=== PATIENT | female | born 1990 | race American Indian/Alaskan Native ===

== ENCOUNTER 2018-09-21 23:45 | Inpatient (IN) | payer BC ==
[2018-09-22] MEDS ORDERED: Nalbuphine 20 MG/ML 1 ML Syringe IVPUSH PRN (00:50)
[2018-09-22] MEDS ORDERED: Sodium Chloride 0.9% 10 ML Syringe FLUSH PRN (00:50)
[2018-09-22] MEDS ORDERED: Oxytocin/Lactated Ringers 10 UNIT/1,000 ML BAG IV SCH ×2 (01:00)
[2018-09-22] MEDS: Lactated Ringers 1,000 ML IV SCH ×4 (01:16→17:30)
[2018-09-22] MEDS ORDERED: Ampicillin 2 GM in Sodium Chloride 0.9% 100 ML IV ONE (01:30)
[2018-09-22] MEDS: Ampicillin 1 GM in Sodium Chloride 0.9% 100 ML IV SCH ×5 (04:58→21:48)
--- NOTE | 2018-09-22 06:53 | PCM.LDHP ---
L&D History of Present Illness - General Date of Service: 09/22/18 Admit Problem/Dx: Patient Status Order with Admit Dx/Problem 09/22/18 00:35 Patient Status [ADT] Routine Admission Diagnosis/Problem Admission Diagnosis/Problem Source of Information: Patient History Limitations: Reports: No Limitations - History of Present Illness Introduction:: Patient is a 27 y/o who presented in the early AM hours with SROM. Admitted by Dr. Childers overnight and just transferred care to [place]. Has been sarai mildly since admit. Continues to leak clear fluid. Doing well otherwise - Related Data Allergies/Adverse Reactions: Allergies Allergy/AdvReac Type Severity Reaction Status Date / Time No Known Allergies Allergy Verified 02/25/14 15:34 Home Medications: Home Meds Pnv with Ca,No.72/Iron/Fa [Pnv Plus Multivit Tab] 1 each PO DAILY 03/08 [History] Past Medical History - Past Health History Medical/Surgical History: Denies Medical/Surgical History Endocrine/Metabolic History: Reports: Diabetes, Gestational Other Endocrine/Metabolic History: with prior , diet controlled - Infectious Disease History Infectious Disease History: Reports: Chicken Pox Social & Family History - Family History Family Medical History: Noncontributory - Tobacco Use Smoking Status *Q: Former Smoker Years of Tobacco use: 10 Packs/Tins Daily: 5 Used Tobacco, but Quit: Yes Month/Year Tobacco Last Used: 07/26/2018 - Alcohol Use Alcohol Use History: No - Recreational Drug Use Recreational Drug Use: No H&P Review of Systems - Review of Systems: Review Of Systems: See Below General: Reports: No Symptoms Pulmonary: Reports: No Symptoms Cardiovascular: Reports: No Symptoms Gastrointestinal: Reports: No Symptoms Genitourinary: Reports: No Symptoms Musculoskeletal: Reports: No Symptoms Neurological: Reports: No Symptoms L&D Exam - Exam Exam: See Below - Vital Signs Vital Signs: Last Vital Signs Temp 36.7 C 09/22/18 00:35 Pulse 84 09/22/18 00:35 Resp 16 09/22/18 00:35 BP 121/67 09/22/18 00:35 Pulse Ox 100 09/22/18 00:35 Weight: 80.286 kg - OB Specific Contraction Intensity: Mild to Moderate Movement: Active Heart Tones: Present Heart Tones per Min: 135 Heart Rate (FHR) Variability: Moderate (6-25 bmp) Presentation: Vertex (per nursing exam) - Reeves Score Reeves Score Cervix Position: Posterior Reeves Score Consistency: Soft Reeves Score Effacement: 51-70% Reeves Score Dilation: 3-4 cm (Per nursing) Reeves Score Infant's Station: -2 Reeves Score Total: 7 - Exam General: Alert, Oriented, Cooperative Lungs: Clear to Auscultation, Normal Respiratory Effort, Crackles Cardiovascular: Regular Rhythm GI/Abdominal Exam: Soft, Non-Tender Genitourinary: Normal external exam Extremities: Normal Inspection Skin: Warm, Dry, Intact - Patient Data Lab Results Last 24 hrs: Laboratory Results - last 24 hr 09/22/18 09/22/18 Range/Units 00:30 01:03 WBC 10.78 H (3.98-10.04) K/mm3 RBC 3.92 L (3.98-5.22) M/mm3 Hgb 10.4 L (11.2-15.7) gm/L Hct 32.5 L (34.1-44.9) % MCV 82.9 (79.4-94.8) fl MCH 26.5 (25.6-32.2) pg MCHC 32.0 L (32.2-35.5) g/dl RDW Std Deviation 43.1 (36.4-46.3) fL Plt Count 226 (182-369) K/mm3 MPV 10.9 (9.4-12.3) fl Neut % (Auto) 71.7 H (34.0-71.1) % Lymph % (Auto) 18.7 L (19.3-51.7) % [place] % (Auto) 7.7 (4.7-12.5) % Eos % (Auto) 1.1 (0.7-5.8) Baso % (Auto) 0.2 (0.1-1.2) % Neut # (Auto) 7.73 H (1.56-6.13) K/mm3 Lymph # (Auto) 2.02 (1.18-3.74) K/mm3 [place] # (Auto) 0.83 H (0.24-0.36) K/mm3 Eos # (Auto) 0.12 (0.04-0.36) K/mm3 Baso # (Auto) 0.02 (0.01-0.08) K/mm3 Membrane Rupture Positive H Result Diagrams: 09/22/18 01:03 - Problem List (1) 39 weeks gestation of SNOMED Code(s): 09917754 ICD Code: Z3A.39 - 39 WEEKS GESTATION OF Status: Acute Current Visit: Yes (2) SROM (spontaneous rupture of membranes) SNOMED Code(s): 070398539 ICD Code: EPB1855 - Status: Acute Current Visit: Yes (3) GBS (group B Streptococcus carrier), +RV culture, currently SNOMED Code(s): 7129705854870, 066118828, 8180340629298 ICD Code: O99.820 - STREPTOCOCCUS B CARRIER STATE COMPLICATING Status: Acute Current Visit: Yes Problem List Initiated/Reviewed/Updated: Yes Orders Last 24hrs: Active Orders 24 hr Category Date Time Status Patient Status [ADT] Routine ADT 09/22/18 00:35 Active Activity as Tolerated [RC] PFP Care 09/22/18 00:50 Active Communication Order [RC] ASDIRECTED Care 09/22/18 00:50 Active Notify Provider [RC] PFP Care 09/22/18 00:50 Active Notify Provider [RC] PRN Care 09/22/18 00:50 Active Peripheral IV Care [RC] . DIRECTED Care 09/22/18 00:50 Active Vital Signs [RC] PER UNIT ROUTINE Care 09/22/18 00:35 Active Regular Diet [DIET] Diet 09/22/18 Breakfast Active RAPID PLASMA REAGIN,RPR [CHEM] Routine Lab 09/22/18 01:03 Received Ampicillin 1 gm Med 09/22/18 05:30 Active Sodium Chloride 0.9% [Normal Saline] 100 ml IV Q4H Lactated Ringers [Ringers, Lactated] 1,000 ml Med 09/22/18 01:00 Active IV ASDIRECTED Nalbuphine [Nubain] Med 09/22/18 00:50 Active 10 mg IVPUSH Q2H PRN Oxytocin/Lactated Ringers [Pitocin in LR 10 Units/1,000 Med 09/22/18 01:00 Active ML] 10 unit in 1,000 ml IV .CONTINUOUS Oxytocin/Lactated Ringers [Pitocin in LR 10 Units/1,000 Med 09/22/18 01:00 Active ML] 10 unit in 1,000 ml IV TITRATE Sodium Chloride 0.9% [Saline Flush] Med 09/22/18 00:50 Active 10 ml FLUSH ASDIRECTED PRN Electronic Heart Tones Ext w TOCO [WOMSER] Oth 09/22/18 00:50 Ordered Routine Electronic Heart Tones Internal [WOMSER] Per Unit Oth 09/22/18 00:50 Ordered Routine Peripheral IV Insertion Adult [OM.PC] Routine Oth 09/22/18 00:50 Ordered Resuscitation Status Routine Resus Stat 09/22/18 00:35 Ordered Medication Orders Ampicillin Sodium 1 gm/ Sodium (Chloride) 100 mls @ 200 mls/hr IV Q4H JORGE L Last Admin: 09/22/18 04:58 Dose: 200 mls/hr Lactated Ringer's (Ringers, Lactated) 1,000 mls @ 100 mls/hr IV ASDIRECTED JORGE L Last Admin: 09/22/18 01:16 Dose: 100 mls/hr Oxytocin/Lactated Ringer's (Pitocin In Lr 10 Units/1,000 Ml) 10 unit in 1,000 mls @ 12 mls/hr IV TITRATE JORGE L; Protocol Oxytocin/Lactated Ringer's (Pitocin In Lr 10 Units/1,000 Ml) 10 unit in 1,000 mls @ 100 mls/hr IV .CONTINUOUS JORGE L Nalbuphine HCl (Nubain) 10 mg IVPUSH Q2H PRN PRN Reason: pain Sodium Chloride (Saline Flush) 10 ml FLUSH ASDIRECTED PRN PRN Reason: Keep Vein Open Assessment/Plan Comment:: 27 y/o who presented with PROM * Now s/p 2 doses of antibiotics * Did discuss augmentation with pitocin with patient. She is uncertain if she wants to do this yet or not. ] * Pain management per patient preference * Anticipate
[2018-09-22] MEDS ORDERED: ePHEDrine 50 MG/ML SDV IVPUSH PRN (07:41)
[2018-09-22] MEDS ORDERED: fentaNYL 100 MCG/2 ML SDV EPIDUR PRN (07:41)
[2018-09-22] MEDS ORDERED: diphenhydrAMINE 50 MG/ML SDV IVPUSH PRN (07:41)
--- NOTE | 2018-09-22 07:44 | PCM.PREANE ---
Preanesthetic Assessment - Procedure Proposed Procedure: dominga - Anesthesia/Transfusion/Family Hx Anesthesia History: Prior Anesthesia Without Reaction Family History of Anesthesia Reaction: No Transfusion History: No Prior Transfusion(s) - Review of Systems General: No Symptoms Pulmonary: No Symptoms Cardiovascular: No Symptoms Gastrointestinal: No Symptoms Neurological: No Symptoms Other: Reports: None - Physical Assessment O2 Sat by Pulse Oximetry: 100 Respiratory Rate: 16 Vital Signs: Last Vital Signs Temp 98.1 F 09/22/18 00:35 Pulse 84 09/22/18 00:35 Resp 16 09/22/18 00:35 BP 121/67 09/22/18 00:35 Pulse Ox 100 09/22/18 00:35 Height: 5 ft 3 in Weight: 80.286 kg ASA Class: 2 Mental Status: Alert & Oriented x3 Airway Class: Mallampati = 1 Dentition: Reports: Normal Dentition Thyro-Mental Finger Breadths: 3 Mouth Opening Finger Breadths: 3 ROM/Head Extension: Full Lungs: Clear to Auscultation, Normal Respiratory Effort Cardiovascular: Regular Rate, Regular Rhythm - Lab Values: Laboratory Last Values WBC 10.78 K/mm3 (3.98-10.04) H 09/22/18 01:03 RBC 3.92 M/mm3 (3.98-5.22) L 09/22/18 01:03 Hgb 10.4 gm/L (11.2-15.7) L 09/22/18 01:03 Hct 32.5 % (34.1-44.9) L 09/22/18 01:03 MCV 82.9 fl (79.4-94.8) 09/22/18 01:03 MCH 26.5 pg (25.6-32.2) 09/22/18 01:03 MCHC 32.0 g/dl (32.2-35.5) L 09/22/18 01:03 RDW Std Deviation 43.1 fL (36.4-46.3) 09/22/18 01:03 Plt Count 226 K/mm3 (182-369) 09/22/18 01:03 MPV 10.9 fl (9.4-12.3) 09/22/18 01:03 Neut % (Auto) 71.7 % (34.0-71.1) H 09/22/18 01:03 Lymph % (Auto) 18.7 % (19.3-51.7) L 09/22/18 01:03 [place] % (Auto) 7.7 % (4.7-12.5) 09/22/18 01:03 Eos % (Auto) 1.1 (0.7-5.8) 09/22/18 01:03 Baso % (Auto) 0.2 % (0.1-1.2) 09/22/18 01:03 Neut # (Auto) 7.73 K/mm3 (1.56-6.13) H 09/22/18 01:03 Lymph # (Auto) 2.02 K/mm3 (1.18-3.74) 09/22/18 01:03 [place] # (Auto) 0.83 K/mm3 (0.24-0.36) H 09/22/18 01:03 Eos # (Auto) 0.12 K/mm3 (0.04-0.36) 09/22/18 01:03 Baso # (Auto) 0.02 K/mm3 (0.01-0.08) 09/22/18 01:03 Membrane Rupture Positive H 09/22/18 00:30 - Allergies Allergies/Adverse Reactions: Allergies Allergy/AdvReac Type Severity Reaction Status Date / Time No Known Allergies Allergy Verified 02/25/14 15:34 - Blood Blood Available: No - Acknowledgements Anesthesia Type Planned: Epidural Pt an Appropriate Candidate for the Planned Anesthesia: Yes Alternatives and Risks of Anesthesia Discussed w Pt/Guardian: Yes Pt/Guardian Understands and Agrees with Anesthesia Plan: Yes PreAnesthesia Questionnaire - Past Health History Medical/Surgical History: Denies Medical/Surgical History Cardiovascular History: Reports: None Respiratory History: Reports: None Gastrointestinal History: Reports: GERD (with preg) : 3 (39 3 weeks) Para: 2 Endocrine/Metabolic History: Reports: Diabetes, Gestational Other Endocrine/Metabolic History: with prior , diet controlled - Infectious Disease History Infectious Disease History: Reports: Chicken Pox - SUBSTANCE USE Smoking Status *Q: Former Smoker (quit jul 2018) Tobacco Use Within Last Twelve Months: Cigarettes Second Hand Smoke Exposure: No Days Per Week of Alcohol Use: 0 Recreational Drug Use History: No - HOME MEDS Home Medications: Home Meds Pnv with Ca,No.72/Iron/Fa [Pnv Plus Multivit Tab] 1 each PO DAILY 03/08 [History] - CURRENT (IN HOUSE) MEDS Current Meds: Current Medications Ampicillin Sodium 1 gm/ Sodium (Chloride) 100 mls @ 200 mls/hr IV Q4H JORGE L Last Admin: 09/22/18 04:58 Dose: 200 mls/hr Lactated Ringer's (Ringers, Lactated) 1,000 mls @ 100 mls/hr IV ASDIRECTED JORGE L Last Admin: 09/22/18 07:37 Dose: 100 mls/hr Oxytocin/Lactated Ringer's (Pitocin In Lr 10 Units/1,000 Ml) 10 unit in 1,000 mls @ 12 mls/hr IV TITRATE JORGE L; Protocol Oxytocin/Lactated Ringer's (Pitocin In Lr 10 Units/1,000 Ml) 10 unit in 1,000 mls @ 100 mls/hr IV .CONTINUOUS JORGE L Nalbuphine HCl (Nubain) 10 mg IVPUSH Q2H PRN PRN Reason: pain Sodium Chloride (Saline Flush) 10 ml FLUSH ASDIRECTED PRN PRN Reason: Keep Vein Open Discontinued Medications Ampicillin Sodium 2 gm/ Sodium (Chloride) 100 mls @ 200 mls/hr IV ONETIME ONE Stop: 09/22/18 01:59 Last Admin: 09/22/18 01:16 Dose: 200 mls/hr
[2018-09-22] MEDS: fentaNYL/Bupivacaine-NS 2 MCG/ML-0.125%/PF 100 ML Bag EP SCH ×2 (07:48→19:31)
--- NOTE | 2018-09-22 12:01 | PCM.PNLD ---
Labor Progress Note - VS & Meds Vital Signs: Last Vital Signs Temp 36.7 C 09/22/18 00:35 Pulse 84 09/22/18 00:35 Resp 16 09/22/18 07:44 BP 121/67 09/22/18 00:35 Pulse Ox 100 09/22/18 07:44 Active Medications: Current Medications Diphenhydramine HCl (Benadryl) 25 mg IVPUSH Q6H PRN PRN Reason: pruritis Ephedrine Sulfate (Ephedrine Sulfate) 5 mg IVPUSH ASDIRECTED PRN PRN Reason: Hypotension Fentanyl (Sublimaze) 100 mcg EPIDUR Q3H PRN PRN Reason: Pain Last Admin: 09/22/18 07:49 Dose: 100 mcg Fentanyl/Bupivacaine HCl (Xjgxctcb-Kleew-Ve 2 Mcg/Ml-0.125%) 100 ml EP ASDIRECTED JORGE L Last Admin: 09/22/18 07:48 Dose: 100 ml Ampicillin Sodium 1 gm/ Sodium (Chloride) 100 mls @ 200 mls/hr IV Q4H JORGE L Last Admin: 09/22/18 09:31 Dose: 200 mls/hr Lactated Ringer's (Ringers, Lactated) 1,000 mls @ 100 mls/hr IV ASDIRECTED JORGE L Last Admin: 09/22/18 08:24 Dose: 100 mls/hr Oxytocin/Lactated Ringer's (Pitocin In Lr 10 Units/1,000 Ml) 10 unit in 1,000 mls @ 12 mls/hr IV TITRATE JORGE L; Protocol Last Titration: 09/22/18 10:15 Dose: 8 munits/min, 48 mls/hr Oxytocin/Lactated Ringer's (Pitocin In Lr 10 Units/1,000 Ml) 10 unit in 1,000 mls @ 100 mls/hr IV .CONTINUOUS JORGE L Nalbuphine HCl (Nubain) 10 mg IVPUSH Q2H PRN PRN Reason: pain Sodium Chloride (Saline Flush) 10 ml FLUSH ASDIRECTED PRN PRN Reason: Keep Vein Open Discontinued Medications Ampicillin Sodium 2 gm/ Sodium (Chloride) 100 mls @ 200 mls/hr IV ONETIME ONE Stop: 09/22/18 01:59 Last Admin: 09/22/18 01:16 Dose: 200 mls/hr - Uterine Contractions Uterine Monitoring Mode: External [place] Contraction Intensity: Moderate - Monitoring Monitor Mode: External Ultrasound Heart Rate (FHR) Baseline: 140 Heart Rate (FHR) Variability: Moderate (6-25 bmp) Accelerations: Present, 15x15 Decelerations: None Strip Review: Category I - Vaginal Exam Dilation (cm): 4 Effacement (Percent): 75 Station: -2 Cervical Position: Midposition - Labor Progress (Free Text) Labor Progress: Doing well. on 10 of pitocin. Comfortable with epidural. Continue to increase per protocol
--- NOTE | 2018-09-22 17:01 | PCM.PNLD ---
Labor Progress Note - VS & Meds Vital Signs: Last Vital Signs Temp 36.7 C 09/22/18 00:35 Pulse 84 09/22/18 00:35 Resp 16 09/22/18 07:44 BP 121/67 09/22/18 00:35 Pulse Ox 100 09/22/18 07:44 Active Medications: Current Medications Diphenhydramine HCl (Benadryl) 25 mg IVPUSH Q6H PRN PRN Reason: pruritis Ephedrine Sulfate (Ephedrine Sulfate) 5 mg IVPUSH ASDIRECTED PRN PRN Reason: Hypotension Fentanyl (Sublimaze) 100 mcg EPIDUR Q3H PRN PRN Reason: Pain Last Admin: 09/22/18 07:49 Dose: 100 mcg Fentanyl/Bupivacaine HCl (Falaeftu-Oerrh-Ro 2 Mcg/Ml-0.125%) 100 ml EP ASDIRECTED JORGE L Last Admin: 09/22/18 07:48 Dose: 100 ml Ampicillin Sodium 1 gm/ Sodium (Chloride) 100 mls @ 200 mls/hr IV Q4H JORGE L Last Admin: 09/22/18 13:28 Dose: 200 mls/hr Lactated Ringer's (Ringers, Lactated) 1,000 mls @ 100 mls/hr IV ASDIRECTED JORGE L Last Admin: 09/22/18 08:24 Dose: 100 mls/hr Oxytocin/Lactated Ringer's (Pitocin In Lr 10 Units/1,000 Ml) 10 unit in 1,000 mls @ 12 mls/hr IV TITRATE JORGE L; Protocol Last Titration: 09/22/18 16:24 Dose: 13 munits/min, 78 mls/hr Oxytocin/Lactated Ringer's (Pitocin In Lr 10 Units/1,000 Ml) 10 unit in 1,000 mls @ 100 mls/hr IV .CONTINUOUS JORGE L Nalbuphine HCl (Nubain) 10 mg IVPUSH Q2H PRN PRN Reason: pain Sodium Chloride (Saline Flush) 10 ml FLUSH ASDIRECTED PRN PRN Reason: Keep Vein Open Discontinued Medications Ampicillin Sodium 2 gm/ Sodium (Chloride) 100 mls @ 200 mls/hr IV ONETIME ONE Stop: 09/22/18 01:59 Last Admin: 09/22/18 01:16 Dose: 200 mls/hr - Uterine Contractions Uterine Monitoring Mode: External [place] Contraction Intensity: Moderate - Monitoring Monitor Mode: External Ultrasound Heart Rate (FHR) Baseline: 140 Heart Rate (FHR) Variability: Moderate (6-25 bmp) Accelerations: Present, 15x15 Decelerations: None Strip Review: Category I - Vaginal Exam Dilation (cm): 5 Effacement (Percent): 80 Station: -2 Cervical Position: Midposition - Labor Progress (Free Text) Labor Progress: Nursing had pitocin up to 14 and then backed down again. Currently back up to 14. IUPC placed as patient still only 5 cm and need to be more accurate with pitocin titration. Patient otherwise doing well. Will monitor for signs of infection
--- NOTE | 2018-09-22 21:11 | PCM.PNLD ---
Labor Progress Note - VS & Meds Vital Signs: Last Vital Signs Temp 36.7 C 09/22/18 00:35 Pulse 84 09/22/18 00:35 Resp 16 09/22/18 07:44 BP 121/67 09/22/18 00:35 Pulse Ox 100 09/22/18 07:44 Active Medications: Current Medications Diphenhydramine HCl (Benadryl) 25 mg IVPUSH Q6H PRN PRN Reason: pruritis Ephedrine Sulfate (Ephedrine Sulfate) 5 mg IVPUSH ASDIRECTED PRN PRN Reason: Hypotension Fentanyl (Sublimaze) 100 mcg EPIDUR Q3H PRN PRN Reason: Pain Last Admin: 09/22/18 07:49 Dose: 100 mcg Fentanyl/Bupivacaine HCl (Ajgtgmsi-Ctqrb-Uj 2 Mcg/Ml-0.125%) 100 ml EP ASDIRECTED JORGE L Last Admin: 09/22/18 19:31 Dose: 100 ml Ampicillin Sodium 1 gm/ Sodium (Chloride) 100 mls @ 200 mls/hr IV Q4H JORGE L Last Admin: 09/22/18 17:28 Dose: 200 mls/hr Lactated Ringer's (Ringers, Lactated) 1,000 mls @ 100 mls/hr IV ASDIRECTED JORGE L Last Admin: 09/22/18 17:30 Dose: 100 mls/hr Oxytocin/Lactated Ringer's (Pitocin In Lr 10 Units/1,000 Ml) 10 unit in 1,000 mls @ 100 mls/hr IV .CONTINUOUS [facility] Oxytocin 20 unit/ Lactated (Ringer's) 1,002 mls @ 66.13 mls/hr IV TITRATE JORGE L; Protocol Last Titration: 09/22/18 20:42 Dose: 26 munits/min, 78.15 mls/hr Nalbuphine HCl (Nubain) 10 mg IVPUSH Q2H PRN PRN Reason: pain Sodium Chloride (Saline Flush) 10 ml FLUSH ASDIRECTED PRN PRN Reason: Keep Vein Open Discontinued Medications Ampicillin Sodium 2 gm/ Sodium (Chloride) 100 mls @ 200 mls/hr IV ONETIME ONE Stop: 09/22/18 01:59 Last Admin: 09/22/18 01:16 Dose: 200 mls/hr Oxytocin/Lactated Ringer's (Pitocin In Lr 10 Units/1,000 Ml) 10 unit in 1,000 mls @ 12 mls/hr IV TITRATE JORGE L; Protocol Last Titration: 09/22/18 18:20 Dose: 20 munits/min, 120 mls/hr - Uterine Contractions Uterine Monitoring Mode: IUPC Contraction Intensity: Moderate - Monitoring Monitor Mode: External Ultrasound Heart Rate (FHR) Baseline: 130 Heart Rate (FHR) Variability: Moderate (6-25 bmp) Accelerations: Present, 15x15 Decelerations: None Strip Review: Category I - Vaginal Exam Dilation (cm): 6 Effacement (Percent): 80 Station: -2 Cervical Position: Midposition - Labor Progress (Free Text) Labor Progress: Patient's IUPC placed at about 1700. Pitocin increased steadily since that time. Now at 26. Patient with change to about 6 cm. Is good change, but less than hoped for. IUPC does not show contractions to be adequate. Reviewed with patient will increase to 30 and leave there for about 1-2 hours. If no change at that point and status is reassuring could consider washout of pitocin and restarting titration. Patient expressed understanding of the above. No other questions at this time.
[2018-09-23] MEDS: Ampicillin 1 GM in Sodium Chloride 0.9% 100 ML IV SCH ×2 (01:42→05:29)
[2018-09-23] MEDS: fentaNYL/Bupivacaine-NS 2 MCG/ML-0.125%/PF 100 ML Bag EP SCH (01:45)
[2018-09-23] MEDS ORDERED: Bupivacaine 0.25% 10 ML SDV ONE (02:00)
[2018-09-23] MEDS ORDERED: Lidocaine 1.5% with EPINEPHrine 1:200,000 5 ML Amp ONE (02:00)
--- NOTE | 2018-09-23 05:58 | PCM.PNLD ---
Labor Progress Note - VS & Meds Vital Signs: Last Vital Signs Temp 36.7 C 09/22/18 00:35 Pulse 84 09/22/18 00:35 Resp 16 09/22/18 07:44 BP 121/67 09/22/18 00:35 Pulse Ox 100 09/22/18 07:44 Active Medications: Current Medications Diphenhydramine HCl (Benadryl) 25 mg IVPUSH Q6H PRN PRN Reason: pruritis Ephedrine Sulfate (Ephedrine Sulfate) 5 mg IVPUSH ASDIRECTED PRN PRN Reason: Hypotension Fentanyl (Sublimaze) 100 mcg EPIDUR Q3H PRN PRN Reason: Pain Last Admin: 09/22/18 07:49 Dose: 100 mcg Fentanyl/Bupivacaine HCl (Ypopznkh-Crhei-Fo 2 Mcg/Ml-0.125%) 100 ml EP ASDIRECTED JORGE L Last Admin: 09/23/18 01:45 Dose: 100 ml Ampicillin Sodium 1 gm/ Sodium (Chloride) 100 mls @ 200 mls/hr IV Q4H JORGE L Last Admin: 09/23/18 05:29 Dose: 200 mls/hr Lactated Ringer's (Ringers, Lactated) 1,000 mls @ 100 mls/hr IV ASDIRECTED JORGE L Last Admin: 09/22/18 17:30 Dose: 100 mls/hr Oxytocin/Lactated Ringer's (Pitocin In Lr 10 Units/1,000 Ml) 10 unit in 1,000 mls @ 100 mls/hr IV .CONTINUOUS [facility] Oxytocin 20 unit/ Lactated (Ringer's) 1,002 mls @ 66.13 mls/hr IV TITRATE JORGE L; Protocol Last Titration: 09/23/18 05:51 Dose: 20 munits/min, 60.12 mls/hr Nalbuphine HCl (Nubain) 10 mg IVPUSH Q2H PRN PRN Reason: pain Sodium Chloride (Saline Flush) 10 ml FLUSH ASDIRECTED PRN PRN Reason: Keep Vein Open Discontinued Medications Ampicillin Sodium 2 gm/ Sodium (Chloride) 100 mls @ 200 mls/hr IV ONETIME ONE Stop: 09/22/18 01:59 Last Admin: 09/22/18 01:16 Dose: 200 mls/hr Oxytocin/Lactated Ringer's (Pitocin In Lr 10 Units/1,000 Ml) 10 unit in 1,000 mls @ 12 mls/hr IV TITRATE JORGE L; Protocol Last Titration: 09/22/18 18:20 Dose: 20 munits/min, 120 mls/hr - Uterine Contractions Uterine Monitoring Mode: IUPC Contraction Intensity: Moderate - Monitoring Monitor Mode: External Ultrasound Heart Rate (FHR) Baseline: 130 Heart Rate (FHR) Variability: Moderate (6-25 bmp) Accelerations: Present, 15x15 Decelerations: Early Strip Review: Category I - Vaginal Exam Dilation (cm): 9 Effacement (Percent): 90 Station: 0 Cervical Position: Anterior - Labor Progress (Free Text) Labor Progress: Patient up to 30 of pitocin last night and left at that level for about an hour and half. Contractions not adequate. Pitocin discontinued and washout done. Restarted around 0100 this AM. Currently at 20 and finally patient at 9 cm dilated. Will reassess in about 45 minutes to see if can start pushing. Nursing team to have PPH kit available in room given long course of labor
[2018-09-23] MEDS ORDERED: Misoprostol 200 MCG Tab PO STA (07:32)
--- NOTE | 2018-09-23 07:35 | PCM.DEL ---
L & D Note - General Info Date of Service: 09/23/18 - Delivery Note Labor: Augmented by Oxytocin Delivery Outcome: Livebirth Delivery Method: Spontaneous Vaginal Delivery-Single Infant Delivery Mode: Spontaneous Presentation: Left Occiput Anterior (MAGGIE) Nuchal Cord: None Anesthesia Type: Epidural Amniotic Fluid Description: Clear Episiotomy Type: None Laceration: 1st Degree Suture type: Vicryl Suture size: 2-0 Placenta: Intact, Spontaneous Cord: 3 Vessels Estimated Blood Loss: 300 Resuscitation Needed: Yes : Bulb Syringe, Stimulated, Warmed, Marble Used, Warmer Used Delivery Comments (Free Text/Narrative):: Patient found to be complete and began pushing. With maternal pushing head finally emerged from an MAGGIE presentation. No nuchal cord present. With gentle downward traction the shoulders and body delivered. Infant placed on maternal abdomen. Cord clamped and cut. Cord blood obtained. Placenta allowed time to separate and expelled intact. Bleeding not too heavy, but slightly boggy tone and so patient given 600 mcg of buccal cytotec. Inspection of the perineum showed a small 1st degree laceration which was repaired with a 2 -0 vicryl in the typical fashion - General Info Date of Service: 09/23/18 - Patient Data Vitals - Most Recent: Last Vital Signs Temp 36.7 C 09/22/18 00:35 Pulse 84 09/22/18 00:35 Resp 16 09/22/18 07:44 BP 121/67 09/22/18 00:35 Pulse Ox 100 09/22/18 07:44 Weight - Most Recent: 80.286 kg I&O - Last 24 Hours: Intake & Output 09/22/18 09/23/18 09/23/18 22:59 06:59 14:59 Intake Total 1000 Balance 1000 Med Orders - Current: Current Medications Diphenhydramine HCl (Benadryl) 25 mg IVPUSH Q6H PRN PRN Reason: pruritis Ephedrine Sulfate (Ephedrine Sulfate) 5 mg IVPUSH ASDIRECTED PRN PRN Reason: Hypotension Fentanyl (Sublimaze) 100 mcg EPIDUR Q3H PRN PRN Reason: Pain Last Admin: 09/22/18 07:49 Dose: 100 mcg Fentanyl/Bupivacaine HCl (Wrobtgyp-Dxpbz-Kr 2 Mcg/Ml-0.125%) 100 ml EP ASDIRECTED JORGE L Last Admin: 09/23/18 01:45 Dose: 100 ml Ampicillin Sodium 1 gm/ Sodium (Chloride) 100 mls @ 200 mls/hr IV Q4H JORGE L Last Admin: 09/23/18 05:29 Dose: 200 mls/hr Lactated Ringer's (Ringers, Lactated) 1,000 mls @ 100 mls/hr IV ASDIRECTED JORGE L Last Admin: 09/22/18 17:30 Dose: 100 mls/hr Oxytocin/Lactated Ringer's (Pitocin In Lr 10 Units/1,000 Ml) 10 unit in 1,000 mls @ 100 mls/hr IV .CONTINUOUS JORGE L Oxytocin 20 unit/ Lactated (Ringer's) 1,002 mls @ 66.13 mls/hr IV TITRATE JORGE L; Protocol Last Titration: 09/23/18 07:10 Dose: 26 munits/min, 78.15 mls/hr Misoprostol (Cytotec) 600 mcg PO NOW STA Stop: 09/23/18 07:33 Nalbuphine HCl (Nubain) 10 mg IVPUSH Q2H PRN PRN Reason: pain Sodium Chloride (Saline Flush) 10 ml FLUSH ASDIRECTED PRN PRN Reason: Keep Vein Open Discontinued Medications Ampicillin Sodium 2 gm/ Sodium (Chloride) 100 mls @ 200 mls/hr IV ONETIME ONE Stop: 09/22/18 01:59 Last Admin: 09/22/18 01:16 Dose: 200 mls/hr Oxytocin/Lactated Ringer's (Pitocin In Lr 10 Units/1,000 Ml) 10 unit in 1,000 mls @ 12 mls/hr IV TITRATE JORGE L; Protocol Last Titration: 09/22/18 18:20 Dose: 20 munits/min, 120 mls/hr - Problem List & Annotations (1) 39 weeks gestation of SNOMED Code(s): 14959587 Code(s): Z3A.39 - 39 WEEKS GESTATION OF Status: Acute Current Visit: Yes (2) SROM (spontaneous rupture of membranes) SNOMED Code(s): 956393929 Code(s): VFA2774 - Status: Acute Current Visit: Yes (3) GBS (group B Streptococcus carrier), +RV culture, currently SNOMED Code(s): 9706343518167, 389458250, 5545550421372 Code(s): O99.820 - STREPTOCOCCUS B CARRIER STATE COMPLICATING Status: Acute Current Visit: Yes (4) Prolonged rupture of membranes SNOMED Code(s): 989861187, 631014627 Code(s): O42.90 - AIXA ROM, 7TH0 BETW RUPT & ONST LABR, UNSP WEEKS OF GEST Status: Acute Current Visit: Yes (5) Vaginal delivery SNOMED Code(s): 435544392 Code(s): O80 - ENCOUNTER FOR FULL-TERM UNCOMPLICATED DELIVERY Status: Acute Current Visit: Yes - Problem List Review Problem List Initiated/Reviewed/Updated: Yes - My Orders Last 24 Hours: My Active Orders 09/22/18 19:30 Oxytocin [Pitocin] 20 unit Lactated Ringers [Ringers, Lactated] 1,000 ml IV TITRATE 09/23/18 07:32 miSOPROStol [Cytotec] 600 mcg PO NOW STA 09/23/18 07:33 Patient Status Manage Transfer [TRANSFER] Routine - Assessment Assessment:: 27 y/o now PPD#0 from at 39 3/7 wks - Plan Plan:: * Routine cares * Encourage breast feeding * Discharge home in 1-2 days
[2018-09-23] MEDS ORDERED: Docusate Sodium 100 MG Cap PO PRN (09:18)
[2018-09-23] MEDS ORDERED: Witch Hazel Medicated Pads 100/Jar TOP PRN (09:18)
[2018-09-23] MEDS ORDERED: Benzocaine/Menthol 20%-0.5% Spray 56 GM Canister TOP PRN (09:18)
[2018-09-23] MEDS ORDERED: Lanolin 100% Cream 7 GM Tube TOP PRN (09:18)
[2018-09-23] MEDS ORDERED: Acetaminophen 325 MG Tab PO PRN (09:18)
[2018-09-23] MEDS: Ibuprofen 600 MG Tab PO PRN ×3 (09:39→20:56)
[2018-09-24] MEDS: Ibuprofen 600 MG Tab PO PRN (06:04)
--- NOTE | 2018-09-24 07:16 | PCM.DCSUM1 ---
Discharge Summary - Discharge Data Discharge Date: 09/24/18 Discharge Disposition: Home, Self-Care 01 Condition: Good - Discharge Diagnosis/Problem(s) (1) 39 weeks gestation of SNOMED Code(s): 03563775 ICD Code: Z3A.39 - 39 WEEKS GESTATION OF Status: Acute Current Visit: Yes (2) SROM (spontaneous rupture of membranes) SNOMED Code(s): 171519779 ICD Code: ENV2375 - Status: Acute Current Visit: Yes (3) GBS (group B Streptococcus carrier), +RV culture, currently SNOMED Code(s): 8546619478530, 850324117, 2701606115888 ICD Code: O99.820 - STREPTOCOCCUS B CARRIER STATE COMPLICATING Status: Acute Current Visit: Yes (4) Prolonged rupture of membranes SNOMED Code(s): 601472624, 249323703 ICD Code: O42.90 - AIXA ROM, 7TH0 BETW RUPT & ONST LABR, UNSP WEEKS OF GEST Status: Acute Current Visit: Yes (5) Vaginal delivery SNOMED Code(s): 485226877 ICD Code: O80 - ENCOUNTER FOR FULL-TERM UNCOMPLICATED DELIVERY Status: Acute Current Visit: Yes - Patient Summary/Data Complications: None Consults: None Recommended Follow-up Testing/Procedures: Follow up in 3-5 weeks for check Hospital Course: 27 y/o presented at 39 2/7 wks with PROM. She was started on pitocin for augmentation. She made it to the max dose of pitocin without adequate contractions noted. Pitocin washout done and re-started. She was able to achieve dilation with this 2nd attempt at augmentation and progressed to complete dilation. She then underwent an uncomplicated . See delivery note. she did well and was discharged home on PPD#1 per her preference - Patient Instructions Diet: Regular Diet as Tolerated Activity: As Tolerated Activity, Other: Pelvic Rest for 6 weeks Driving: May Drive Today Showering/Bathing: May Shower Showering/Bathing, Other: May Bathe Notify Provider of: Fever, Increased Pain, Swelling and Redness, Drainage, Nausea and/or Vomiting - Discharge Plan *PRESCRIPTION DRUG MONITORING PROGRAM REVIEWED*: Not Applicable *COPY OF PRESCRIPTION DRUG MONITORING REPORT IN PATIENT ZANDRA: Not Applicable Home Medications: Home Meds Pnv with Ca,No.72/Iron/Fa [Pnv Plus Multivit Tab] 1 each PO DAILY 03/08 [History] Docusate Sodium [Colace] 100 mg PO BID PRN cap 09/24/18 [Rx] Ibuprofen [Motrin] 600 mg PO Q6H PRN tablet 09/24/18 [Rx] Referrals: Scarlett Montgomery MD [Primary Care Provider] - (3-6 weeks for check ) - Discharge Summary/Plan Comment DC Time >30 min.: No - Patient Data Vitals - Most Recent: Last Vital Signs Temp 36.6 C 09/24/18 06:00 Pulse 85 09/24/18 06:00 Resp 15 09/24/18 06:00 BP 112/62 09/24/18 06:00 Pulse Ox 99 09/24/18 06:00 Weight - Most Recent: 80.286 kg Lab Results - Last 24 hrs: Laboratory Results - last 24 hr 09/22/18 Range/Units 01:03 RPR Non-reactive (NONREACTIVE) Med Orders - Current: Current Medications Acetaminophen (Tylenol) 650 mg PO Q4H PRN PRN Reason: mild pain or fever Last Admin: 09/23/18 13:10 Dose: 650 mg Benzocaine/Menthol (Dermoplast Pain Relief [place]) 0 gm TOP ASDIRECTED PRN PRN Reason: Perineal Comfort Measure Last Admin: 09/23/18 09:38 Dose: 1 applic Docusate Sodium (Colace) 100 mg PO BID PRN PRN Reason: Constipation Last Admin: 09/23/18 20:56 Dose: 100 mg Emollient Ointment (Lansinoh Hpa) 0 gm TOP ASDIRECTED PRN PRN Reason: Sore Nipples Ibuprofen (Motrin) 600 mg PO Q6H PRN PRN Reason: Mild pain or fever Last Admin: 09/24/18 06:04 Dose: 600 mg Witch Aide (Tucks) 1 pad TOP ASDIRECTED PRN PRN Reason: Hemorrhoid pain Last Admin: 09/23/18 09:39 Dose: 1 pad Discontinued Medications Bupivacaine HCl (Sensorcaine-Mpf 0.25%) 10 ml .ROUTE .STK-MED ONE Stop: 09/23/18 02:01 Diphenhydramine HCl (Benadryl) 25 mg IVPUSH Q6H PRN PRN Reason: pruritis Ephedrine Sulfate (Ephedrine Sulfate) 5 mg IVPUSH ASDIRECTED PRN PRN Reason: Hypotension Fentanyl (Sublimaze) 100 mcg EPIDUR Q3H PRN PRN Reason: Pain Last Admin: 09/22/18 07:49 Dose: 100 mcg Fentanyl/Bupivacaine HCl (Lwsedgzk-Xncrb-Ap 2 Mcg/Ml-0.125%) 100 ml EP ASDIRECTED JORGE L Last Admin: 09/23/18 01:45 Dose: 100 ml Ampicillin Sodium 2 gm/ Sodium (Chloride) 100 mls @ 200 mls/hr IV ONETIME ONE Stop: 09/22/18 01:59 Last Admin: 09/22/18 01:16 Dose: 200 mls/hr Ampicillin Sodium 1 gm/ Sodium (Chloride) 100 mls @ 200 mls/hr IV Q4H JORGE L Last Admin: 09/23/18 05:29 Dose: 200 mls/hr Lactated Ringer's (Ringers, Lactated) 1,000 mls @ 100 mls/hr IV ASDIRECTED JORGE L Last Admin: 09/22/18 17:30 Dose: 100 mls/hr Oxytocin/Lactated Ringer's (Pitocin In Lr 10 Units/1,000 Ml) 10 unit in 1,000 mls @ 12 mls/hr IV TITRATE JORGE L; Protocol Last Titration: 09/22/18 18:20 Dose: 20 munits/min, 120 mls/hr Oxytocin/Lactated Ringer's (Pitocin In Lr 10 Units/1,000 Ml) 10 unit in 1,000 mls @ 100 mls/hr IV .CONTINUOUS JORGE L Last Admin: 09/23/18 09:17 Dose: 100 mls/hr Oxytocin 20 unit/ Lactated (Ringer's) 1,002 mls @ 66.13 mls/hr IV TITRATE JORGE L; Protocol Last Titration: 09/23/18 07:17 Dose: 999 munits/min, 3,002.99 mls/hr Lidocaine/Epinephrine (Xylocaine-Mpf 1.5% W/Epinephrine 1:200,000) 5 ml .ROUTE .STK-MED ONE Stop: 09/23/18 02:01 Misoprostol (Cytotec) 600 mcg PO NOW STA Stop: 09/23/18 07:33 Last Admin: 09/23/18 09:16 Dose: 600 mcg Nalbuphine HCl (Nubain) 10 mg IVPUSH Q2H PRN PRN Reason: pain Sodium Chloride (Saline Flush) 10 ml FLUSH ASDIRECTED PRN PRN Reason: Keep Vein Open
--- NOTE | 2018-09-24 07:16 | PCM.PNPP ---
- General Info Date of Service: 09/24/18 Functional Status: Reports: Pain Controlled, Tolerating Diet, Ambulating, Urinating - Review of Systems General: Reports: No Symptoms Pulmonary: Reports: No Symptoms Cardiovascular: Reports: No Symptoms Gastrointestinal: Reports: No Symptoms Genitourinary: Reports: No Symptoms Musculoskeletal: Reports: No Symptoms Neurological: Reports: No Symptoms - Patient Data Vital Signs - Most Recent: Last Vital Signs Temp 36.6 C 09/24/18 06:00 Pulse 85 09/24/18 06:00 Resp 15 09/24/18 06:00 BP 112/62 09/24/18 06:00 Pulse Ox 99 09/24/18 06:00 Weight - Most Recent: 80.286 kg Lab Results - Last 24 Hours: Laboratory Results - last 24 hr 09/22/18 Range/Units 01:03 RPR Non-reactive (NONREACTIVE) Med Orders - Current: Current Medications Acetaminophen (Tylenol) 650 mg PO Q4H PRN PRN Reason: mild pain or fever Last Admin: 09/23/18 13:10 Dose: 650 mg Benzocaine/Menthol (Dermoplast Pain Relief [place]) 0 gm TOP ASDIRECTED PRN PRN Reason: Perineal Comfort Measure Last Admin: 09/23/18 09:38 Dose: 1 applic Docusate Sodium (Colace) 100 mg PO BID PRN PRN Reason: Constipation Last Admin: 09/23/18 20:56 Dose: 100 mg Emollient Ointment (Lansinoh Hpa) 0 gm TOP ASDIRECTED PRN PRN Reason: Sore Nipples Ibuprofen (Motrin) 600 mg PO Q6H PRN PRN Reason: Mild pain or fever Last Admin: 09/24/18 06:04 Dose: 600 mg Witch Aide (Tucks) 1 pad TOP ASDIRECTED PRN PRN Reason: Hemorrhoid pain Last Admin: 09/23/18 09:39 Dose: 1 pad Discontinued Medications Bupivacaine HCl (Sensorcaine-Mpf 0.25%) 10 ml .ROUTE .STK-MED ONE Stop: 09/23/18 02:01 Diphenhydramine HCl (Benadryl) 25 mg IVPUSH Q6H PRN PRN Reason: pruritis Ephedrine Sulfate (Ephedrine Sulfate) 5 mg IVPUSH ASDIRECTED PRN PRN Reason: Hypotension Fentanyl (Sublimaze) 100 mcg EPIDUR Q3H PRN PRN Reason: Pain Last Admin: 09/22/18 07:49 Dose: 100 mcg Fentanyl/Bupivacaine HCl (Qoxbjewi-Tzdct-Jj 2 Mcg/Ml-0.125%) 100 ml EP ASDIRECTED JORGE L Last Admin: 09/23/18 01:45 Dose: 100 ml Ampicillin Sodium 2 gm/ Sodium (Chloride) 100 mls @ 200 mls/hr IV ONETIME ONE Stop: 09/22/18 01:59 Last Admin: 09/22/18 01:16 Dose: 200 mls/hr Ampicillin Sodium 1 gm/ Sodium (Chloride) 100 mls @ 200 mls/hr IV Q4H JORGE L Last Admin: 09/23/18 05:29 Dose: 200 mls/hr Lactated Ringer's (Ringers, Lactated) 1,000 mls @ 100 mls/hr IV ASDIRECTED JORGE L Last Admin: 09/22/18 17:30 Dose: 100 mls/hr Oxytocin/Lactated Ringer's (Pitocin In Lr 10 Units/1,000 Ml) 10 unit in 1,000 mls @ 12 mls/hr IV TITRATE JORGE L; Protocol Last Titration: 09/22/18 18:20 Dose: 20 munits/min, 120 mls/hr Oxytocin/Lactated Ringer's (Pitocin In Lr 10 Units/1,000 Ml) 10 unit in 1,000 mls @ 100 mls/hr IV .CONTINUOUS JORGE L Last Admin: 09/23/18 09:17 Dose: 100 mls/hr Oxytocin 20 unit/ Lactated (Ringer's) 1,002 mls @ 66.13 mls/hr IV TITRATE JORGE L; Protocol Last Titration: 09/23/18 07:17 Dose: 999 munits/min, 3,002.99 mls/hr Lidocaine/Epinephrine (Xylocaine-Mpf 1.5% W/Epinephrine 1:200,000) 5 ml .ROUTE .STK-MED ONE Stop: 09/23/18 02:01 Misoprostol (Cytotec) 600 mcg PO NOW STA Stop: 09/23/18 07:33 Last Admin: 09/23/18 09:16 Dose: 600 mcg Nalbuphine HCl (Nubain) 10 mg IVPUSH Q2H PRN PRN Reason: pain Sodium Chloride (Saline Flush) 10 ml FLUSH ASDIRECTED PRN PRN Reason: Keep Vein Open - Interaction Infant Disposition, : [place] in Room with Family Interaction: Holding Infant Feeding: Bottle Fed Infant Support Person: - Recovery Exam Fundal Tone: Firm Fundal Level: At Umbilicus Fundal Placement: Midline Lochia Amount: Small Lochia Color: Rubra/Red Perineum Description: Intact, Minimal Bruising/Swelling Other Perinuem Description: 2nd degree laceration with repair Episiotomy/Laceration: None Bladder Status: Voiding Urinary Elimination: Voided - Exam General: Alert, Oriented, Cooperative GI/Abdominal Exam: Soft, Non-Tender Extremities: Normal Inspection Skin: Warm, Dry, Intact - Problem List & Annotations (1) 39 weeks gestation of SNOMED Code(s): 81844446 Code(s): Z3A.39 - 39 WEEKS GESTATION OF Status: Acute Current Visit: Yes (2) SROM (spontaneous rupture of membranes) SNOMED Code(s): 950708539 Code(s): YMZ7581 - Status: Acute Current Visit: Yes (3) GBS (group B Streptococcus carrier), +RV culture, currently SNOMED Code(s): 8104202292891, 964723378, 6220712650658 Code(s): O99.820 - STREPTOCOCCUS B CARRIER STATE COMPLICATING Status: Acute Current Visit: Yes (4) Prolonged rupture of membranes SNOMED Code(s): 652415847, 193499009 Code(s): O42.90 - AIXA ROM, 7TH0 BETW RUPT & ONST LABR, UNSP WEEKS OF GEST Status: Acute Current Visit: Yes (5) Vaginal delivery SNOMED Code(s): 111119090 Code(s): O80 - ENCOUNTER FOR FULL-TERM UNCOMPLICATED DELIVERY Status: Acute Current Visit: Yes - Problem List Review Problem List Initiated/Reviewed/Updated: Yes - My Orders Last 24 Hours: My Active Orders 09/23/18 09:18 Activity as Tolerated [RC] PER UNIT ROUTINE Vital Signs [RC] 03,09,15,21 Acetaminophen [Tylenol] 650 mg PO Q4H PRN Benzocaine/Menthol [Dermoplast Pain Relief [place]] See Dose Instructions TOP ASDIRECTED PRN Docusate Sodium [Colace] 100 mg PO BID PRN Ibuprofen [Motrin] 600 mg PO Q6H PRN Lanolin [Lansinoh HPA] See Dose Instructions TOP ASDIRECTED PRN Witch Aide [Tucks] 1 pad TOP ASDIRECTED PRN Assess Lochia [WOMSER] Per Unit Routine Assess Uterine Involution [WOMSER] Per Unit Routine Breast Pump [WOMSER] Per Unit Routine Heat Therapy [OM.PC] PRN Ice Therapy [OM.PC] Per Unit Routine Perineal Care [OM.PC] Per Unit Routine Sitz Bath [OM.PC] Per Unit Routine 09/23/18 Breakfast Regular Diet [DIET] 09/24/18 07:15 Ready for Discharge [RC] PER UNIT ROUTINE 09/24/18 09:18 Heat Therapy [OM.PC] PRN - Assessment Assessment:: 27 y/o now PPD#1 from at 39 3/7 wks - Plan Plan:: * Routine cares * Bottle feeding * Discharge home today
[2018-09-24 12:28] VITALS: BP 120/70
== END 2018-09-24 11:15 | disposition home or self-care (01) | DRG 560 ==
LOC: JD.OBCHECK 23:45 → JD.OB 23:47 → JD.OBCHECK 09-22 00:32 → JD.OB 09-22 00:35 → OBSVTOIN 09-23 07:17 → JD.OB 09-23 07:18
PROVIDERS: ADMIT Obstetrics & Gynecology; ATTEND Obstetrics & Gynecology
PROC: 00HU33Z Insertion of Infusion Device into Spinal Canal, Percutaneous Approach (ICD-10-PCS; 2018-09-22)
PROC: 3E0R3BZ Introduction of Anesthetic Agent into Spinal Canal, Percutaneous Approach (ICD-10-PCS; 2018-09-22)
PROC: 0HQ9XZZ Repair Perineum Skin, External Approach (ICD-10-PCS; principal; 2018-09-23)
PROC: 10E0XZZ Delivery of Products of Conception, External Approach (ICD-10-PCS; principal; 2018-09-23)
PROC: 10H07YZ Insertion of Other Device into Products of Conception, Via Natural or Artificial Opening (ICD-10-PCS; principal; 2018-09-23)
PROC: 6A550ZT Pheresis of Cord Blood Stem Cells, Single (ICD-10-PCS; principal; 2018-09-23)
DX: O99.824 Streptococcus B carrier state complicating childbirth (principal); O42.92 Full-term premature rupture of membranes, unspecified as to length of time between rupture and onset of labor; Z3A.39 39 weeks gestation of pregnancy; Z37.0 Single live birth; Z87.891 Personal history of nicotine dependence; O70.0 First degree perineal laceration during delivery; O62.2 Other uterine inertia; O99.62 Diseases of the digestive system complicating childbirth; K21.9 Gastro-esophageal reflux disease without esophagitis
CPT/HCPCS: 01967; 36415; 51702; 59025; 59409; 84112; 85025; 86592; A9270-GY; J0290; J2590; J3010; J3490; J7030; J7120

== ENCOUNTER 2023-06-07 12:23 | Emergency (ER) | payer BC, MEDICAID ==
[2023-06-07 13:04] LABS: BASOPHILS PERCENT AUTO 0.3 % (0.0-1.0); EOSINOPHILS ABSOLUTE AUTO 0.1 K/mm3 (0.0-0.4); EOSINOPHILS PERCENT AUTO 1.8 % (0.0-6.0); HEMATOCRIT 39.8 % (37.0-47.0); HEMOGLOBIN 14.3 gm/dl (12.0-16.0); IMMATURE GRAN ABSOLUTE AUTO 0.01 K/mm3 (0.00-0.05); IMMATURE GRAN PERCENT AUTO 0.2 % (0.0-0.4); LYMPHOCYTES ABSOLUTE AUTO 1.5 K/mm3 (1.0-4.8); LYMPHOCYTES PERCENT AUTO 23.2 % (24.0-44.0); MEAN CORPUSCULAR HGB CONC 35.9 g/dl (32.0-36.0); MEAN CORPUSCULAR VOLUME 86.1 fl (83.0-99.0); MEAN PLATELET VOLUME 9.9 fl (9.4-12.3); MONOCYTES ABSOLUTE AUTO 0.3 K/mm3 (0.0-0.8); MONOCYTES PERCENT AUTO 4.8 % (0.0-8.0); NEUTROPHILS ABSOLUTE AUTO 4.4 K/mm3 (1.8-7.7); NEUTROPHILS PERCENT AUTO 69.7 % (41.0-71.0); PLATELET COUNT,PLT 217 K/mm3 (150-400); RED BLOOD CELL COUNT 4.62 M/mm3 (4.10-5.30); WHITE BLOOD CELL COUNT,WBC 6.24 K/mm3 (3.9-11.3)
[2023-06-07] MEDS ORDERED: Ondansetron 4 MG Tab.DIS PO PRN (13:54)
[2023-06-07 13:58] LABS: ALBUMIN 3.9 g/dl (3.4-5.0); ANION GAP 12.8 (5-15); BILIRUBIN TOTAL 0.5 mg/dL (0.2-1.0); BUN/CREATININE RATIO 18.6 (14-18); CREATININE 0.7 mg/dL (0.55-1.02); EST CRCL DRUG DOSING (CG) 96.33 mL/min; POTASSIUM,K 3.8 mEq/L (3.5-5.1); PROTEIN TOTAL,TP 7.8 g/dl (6.4-8.2)
[2023-06-07 15:02] LABS: APPEARANCE,URINE CLEAR (Clear); BILIRUBIN,URINE NEGATIVE (Negative); COLOR,URINE YELLOW (Yellow); GLUCOSE,URINE NEGATIVE (Negative); KETONES,URINE NEGATIVE (Negative); LEUKOCYTE ESTERASE,URINE NEGATIVE (Negative); NITRITE,URINE NEGATIVE (Negative); OCCULT BLOOD,URINE 2+ (Negative); PROTEIN,URINE NEGATIVE (Negative); UROBILINOGEN,URINE 0.2 (0.2-1.0)
[2023-06-07 15:06] VITALS: BP 127/75; PULSE 74
[2023-06-07 15:22] LABS: BACTERIA,URINE FEW /hpf (FEW); MUCUS,URINE FEW /hpf (FEW); RBC,URINE 0-5 /hpf (0-5); SQUAMOUS EPITHELIAL CELLS,UR 0-5 /hpf (0-5); WBC,URINE 0-5 /hpf (0-5)
== END 2023-06-07 15:00 | disposition home or self-care (01) ==
LOC: JD.ED 12:23
DX: N92.6 Irregular menstruation, unspecified (principal); R11.0 Nausea; Z87.891 Personal history of nicotine dependence
CPT/HCPCS: 36415; 80053; 81001; 83690; 84702; 85025; 99284; A9270; 99283

== ENCOUNTER 2024-03-26 15:45 | Inpatient (IN) | payer BC ==
[~2024-03-26 15:45] MED LIST: Bupivacaine 0.25% 10 ML SDV ONE
[2024-03-26] MEDS ORDERED: Calcium Carbonate 500 MG Tab.Chew PO PRN (16:19)
[2024-03-26] MEDS ORDERED: Nalbuphine 10 MG/ML Syringe IVPUSH PRN ×2 (16:19→16:46)
[2024-03-26] MEDS ORDERED: Acetaminophen 325 MG Tab PO PRN (16:19)
[2024-03-26] MEDS ORDERED: Ondansetron 4 MG/2 ML SDV IVPUSH PRN ×2 (16:19→16:46)
[2024-03-26] MEDS ORDERED: Lidocaine 1% 50 ML MDV INJECT PRN ×2 (16:19→16:46)
[2024-03-26] MEDS ORDERED: Lactated Ringers 1,000 ML IV SCH (16:30)
[2024-03-26] MEDS ORDERED: Oxytocin/0.9 % Sodium Chloride 30 UNIT/500 ML BAG IV SCH ×3 (16:30→17:00)
[2024-03-26 16:38] LABS: BASOPHILS PERCENT AUTO 0.2 % (0.0-1.0); EOSINOPHILS ABSOLUTE AUTO 0.1 K/mm3 (0.0-0.4); EOSINOPHILS PERCENT AUTO 0.8 % (0.0-6.0); HEMATOCRIT 35.6 % (37.0-47.0); HEMOGLOBIN 12.1 gm/dl (12.0-16.0); IMMATURE GRAN ABSOLUTE AUTO 0.05 K/mm3 (0.00-0.05); IMMATURE GRAN PERCENT AUTO 0.6 % (0.0-0.4); LYMPHOCYTES ABSOLUTE AUTO 1.5 K/mm3 (1.0-4.8); MEAN CORPUSCULAR HEMOGLOBIN 28.1 pg (28.0-32.0); MEAN CORPUSCULAR VOLUME 82.8 fl (83.0-99.0); MEAN PLATELET VOLUME 11.7 fl (9.4-12.3); MONOCYTES ABSOLUTE AUTO 0.5 K/mm3 (0.0-0.8); MONOCYTES PERCENT AUTO 5.4 % (0.0-8.0); NEUTROPHILS ABSOLUTE AUTO 6.9 K/mm3 (1.8-7.7); PLATELET COUNT,PLT 179 K/mm3 (150-400); WHITE BLOOD CELL COUNT,WBC 9.04 K/mm3 (3.9-11.3)
[2024-03-26] MEDS ORDERED: Sodium Chloride 0.9% 10 ML Syringe FLUSH PRN (16:46)
[2024-03-26 17:05] LABS: CREATININE 0.6 mg/dL (0.55-1.02); EST CRCL DRUG DOSING (CG) 111.35 mL/min; URIC ACID 4.8 mg/dL (2.6-6.0)
[2024-03-26] MEDS: Lactated Ringers 1,000 ML IV SCH (17:14)
[2024-03-26 17:28] LABS: CREATININE,URINE RAND 18.4 mg/dL (30.0-125.0)
[2024-03-26 17:30] LABS: PROTEIN,URINE RANDOM < 6.0 mg/dL (0.0-11.8)
[2024-03-26] MEDS ORDERED: diphenhydrAMINE 50 MG/ML SDV IVPUSH PRN (17:30)
[2024-03-26] MEDS ORDERED: ePHEDrine 50 MG/ML SDV IVPUSH PRN (17:30)
[2024-03-26] MEDS: fentaNYL 100 MCG/2 ML SDV EPIDUR PRN (17:39)
[2024-03-26] MEDS: Bupivacaine/fentaNYL/NS 100 ML Bag EPIDUR PRN (17:40)
[2024-03-26] MEDS: Oxytocin/0.9 % Sodium Chloride 30 UNIT/500 ML BAG IV SCH (20:06)
[2024-03-27] MEDS: Ibuprofen 600 MG Tab PO SCH (00:35)
[2024-03-27] MEDS: Acetaminophen 325 MG Tab PO PRN (01:13)
[2024-03-27] MEDS: Benzocaine/Menthol 20%-0.5% Spray 78 GM Cannister TOP PRN (01:14)
[2024-03-27] MEDS: Witch Hazel Medicated Pads 40/Jar TOP PRN (01:14)
[2024-03-28] MEDS: Ibuprofen 600 MG Tab PO SCH (10:34)
[2024-03-28] MEDS: Docusate Sodium 100 MG Cap PO PRN (14:21)
[2024-03-28 16:51] VITALS: BP 132/81; PULSE 68
== END 2024-03-28 19:30 | disposition home or self-care (01) | DRG 560 ==
LOC: JD.OBCHECK 15:45 → JD.OB 15:49 → JD.OBCHECK 16:18 → JD.OB 16:19 → OBSVTOIN 20:41 → JD.OB 20:42
PROVIDERS: ADMIT Obstetrics & Gynecology; ATTEND Obstetrics & Gynecology
PROC: 10E0XZZ Delivery of Products of Conception, External Approach (ICD-10-PCS; principal; 2024-03-26)
PROC: 3E0R3BZ Introduction of Anesthetic Agent into Spinal Canal, Percutaneous Approach (ICD-10-PCS; 2024-03-26)
PROC: 00HU33Z Insertion of Infusion Device into Spinal Canal, Percutaneous Approach (ICD-10-PCS; 2024-03-26)
DX: O42.02 Full-term premature rupture of membranes, onset of labor within 24 hours of rupture (principal); O24.424 Gestational diabetes mellitus in childbirth, insulin controlled; Z3A.38 38 weeks gestation of pregnancy; Z37.0 Single live birth; O99.214 Obesity complicating childbirth; O13.4 Gestational [pregnancy-induced] hypertension without significant proteinuria, complicating childbirth
CPT/HCPCS: 36415; 51701; 59025; 59409; 82565; 82570; 82947; 83615; 84156; 84450; 84460; 84520; 84550; 85025; 86592; 86850; 86900; 86901; A9270-GY; J0665; J3010; J3490; J7120; J7999